=== PATIENT | female | born 1960 | race Caucasian/White ===

== ENCOUNTER 2016-10-05 19:49 | Emergency (ER) | payer OTHER ==
[2016-10-05 20:53] VITALS: BP 129/82
--- NOTE | 2016-10-05 22:04 | UC ---
UC General HPI - HPI Summary HPI Summary: complaint of left great toe pain that started yesterday swollen and red denies trauma denies any wounds or bites on her foot sister has gout hasn't taken any medication for pain - History of Current Complaint Chief Complaint: UCLowerExtremity Stated Complaint: SORE BIG TOE Time Seen by Provider: 10/05/16 21:58 Hx Obtained From: Patient - Allergy/Home Medications Allergies/Adverse Reactions: Allergies Allergy/AdvReac Type Severity Reaction Status Date / Time Meperidine [From Demerol HCl] Allergy Unknown Verified 10/05/16 20:54 Reaction Details Home Medications: Home Medications Calcium Carbonate-Vitamin D [Calcium + D3 600-200 mg-Unit] 10/05/16 [History Confirmed 10/05/16] LoraTADine TAB(NF) [Claritin 10 MG TAB(NF)] 10/05/16 [History] Multiple Vitamin [Multi Vitamin] 10/05/16 [History] Progesterone CAP (NF) [Prometrium (NF)] 10/05/16 [History] PMH/Surg Hx/FS Hx/Imm Hx - Surgical History Surgical History: None - Social History Alcohol Use: None Substance Use Type: None Smoking Status (MU): Never Smoked Tobacco Review of Systems Constitutional: Negative Skin: Negative Eyes: Negative ENT: Negative Respiratory: Negative Cardiovascular: Negative Gastrointestinal: Negative Genitourinary: Negative Motor: Negative Neurovascular: Negative Musculoskeletal: Other: - left great toe pain Neurological: Negative Psychological: Negative All Other Systems Reviewed And Are Negative: Yes Physical Exam Triage Information Reviewed: Yes Appearance: No Pain Distress, Well-Nourished Vital Signs: Initial Vital Signs Temp 97.1 F 10/05/16 20:50 Pulse 80 10/05/16 20:50 Resp 18 10/05/16 20:50 BP 129/82 10/05/16 20:50 Pulse Ox 100 10/05/16 20:50 Vital Signs Reviewed: Yes Eyes: Positive: Conjunctiva Clear ENT: Positive: Pharynx normal, TMs normal Neck: Positive: Supple Respiratory: Positive: Lungs clear, Normal breath sounds, No respiratory distress Cardiovascular: Positive: RRR, No Murmur, Pulses Normal Abdomen Description: Positive: Nontender, Soft Bowel Sounds: Positive: Present Musculoskeletal: Positive: Other: - left great toe pain Neurological Exam: Normal Psychological Exam: Normal Skin Exam: Normal Course/Dx - Differential Dx - Multi-Symptom Differential Diagnoses: Other - gout, cellulitis, fracture Provider Diagnoses: gout Discharge - Discharge Plan Condition: Stable Disposition: HOME Prescriptions: Colchicine* [Colcrys*] 0.6 mg PO DAILY #3 tab Patient Education Materials: Gout (ED), Low Purine Diet (ED) Referrals: Gerson Osuna MD [Primary Care Provider] - Additional Instructions: Increase fluids and rest Take ibuprofen 800 mg PO once tonight for pain then take colcichine as directed Please review your discharge instructions. If your symptoms do not improve please call your primary care provider or return to urgent care.
== END 2016-10-05 22:17 | disposition home or self-care (01) ==
LOC: UCEAST 19:49
DX: M10.072 Idiopathic gout, left ankle and foot (principal); Z88.5 Allergy status to narcotic agent
CPT/HCPCS: 99212; G0463

== ENCOUNTER 2018-06-18 12:45 | Emergency (ER) | payer OTHER ==
--- NOTE | 2018-06-18 13:23 | ED ---
GI/ HPI - HPI Summary HPI Summary: This patient is a 57 year old F [facility] bleeding that began 4 days ago that was worse in the last two days. The patient rates the pain 0/10 in severity. She states she has been changing her tampon every 90 minutes. She claims this has improved as over the weekend she was soaking through two ultra-tampons every 30 minutes to an hour. Patient reports lower back pain and ABD cramping over the weekend that resolved. The patient has experienced this issue in the past and dx with uterine fibroids. She states she started taking progesterone 100mg QD 9 months ago and had a large improvement on the bleeding. She has recently received a transvaginal US. She contacted Dr. Alvares this AM and it was recommended she come in to be seen. She is not on a blood thinner or HTN medications. - History of Current Complaint Chief Complaint: EDVaginalBleeding Time Seen by Provider: 06/18/18 13:08 Stated Complaint: HEAVY MENSTRUAL BLEEDING Hx Obtained From: Patient Hx Last Menstrual Period: end of August 2016 Onset/Duration: Started Days Ago, Still Present Timing: Constant Severity: Mild Current Severity: None Pain Intensity: 0 Associated Signs and Symptoms: Positive: Other: - lower back pain and ABD cramping - Allergy/Home Medications Allergies/Adverse Reactions: Allergies Allergy/AdvReac Type Severity Reaction Status Date / Time latex Allergy Shortness Verified 06/18/18 12:51 of Breath meperidine Allergy Vomiting Verified 06/18/18 12:51 Home Medications: Home Medications Ferrous Sulfate TAB* 325 mg PO DAILY 06/18/18 [History Confirmed 06/18/18] Magnesium Oxide [Magnesium] 400 mg PO DAILY 06/18/18 [History Confirmed 06/18/18 ] Norethindrone Acetate 5 mg PO DAILY 06/18/18 [History Confirmed 06/18/18] PMH/Surg Hx/FS Hx/Imm Hx Endocrine/Hematology History: Denies: Hx Blood Transfusions, Hx Bone Marrow Disease, Hx Systemic Lupus Erythematosus Respiratory History: Denies: Hx Chronic Obstructive Pulmonary Disease (COPD) History: Reports: Other Problems/Disorders - uterine fibroids EENT History: Denies: Hx Deafness Neurological History: Denies: Hx CVA Infectious Disease History: No Infectious Disease History: Denies: Traveled Outside the [place] in Last 30 Days - Family History Known Family History: Negative: Respiratory Disease, Seizure Disorder - Social History Alcohol Use: None Substance Use Type: Reports: None Smoking Status (MU): Former Smoker Review of Systems Negative: Fever Positive: Abdominal Pain - cramping Genitourinary: Other - vaginal bleeding Positive: Other - back pain All Other Systems Reviewed And Are Negative: Yes Physical Exam - Summary Physical Exam Summary: General: well-appearing, no pain distress Skin: warm, color reflects adequate perfusion, dry Head: normal Eyes: EOMI, VICTORIA ENT: normal Neck: supple, nontender Respiratory: CTA, breath sounds present Cardiovascular: RRR Abdomen: soft, nontender Bowel: present Musculoskeletal: normal, strength/ROM intact Neurological: sensory/motor intact, A&O x3 Psychological: affect/mood appropriate Triage Information Reviewed: Yes Vital Signs On Initial Exam: Initial Vitals Temp Pulse Resp BP Pulse Ox 97.8 F 82 20 142/70 100 06/18/18 12:48 06/18/18 12:48 06/18/18 12:48 06/18/18 12:48 06/18/18 12:48 Vital Signs Reviewed: Yes Diagnostics - Vital Signs Vital Signs Temp Pulse Resp BP Pulse Ox 06/18/18 13:01 76 100 06/18/18 13:00 76 143/75 99 06/18/18 12:59 73 99 06/18/18 12:48 97.8 F 82 20 142/70 100 - Laboratory Result Diagrams: 06/18/18 13:58 06/18/18 13:58 Lab Statement: Any lab studies that have been ordered have been reviewed, and results considered in the medical decision making process. GIGU Course/Dx - Course Course Of Treatment: I discussed the case with the CHRISTIAN SCIENCE PRACTITIONER on-call Dr. Flores. Patient's hemoglobin is slightly low but not at a dangerous level at this time. Overall her bleeding is decreasing. Her orthostatic vital signs are normal. The plan is to increase her norethindrone to 10 mg a day and have her follow-up with her CHRISTIAN SCIENCE PRACTITIONER in the next 2-3 days. She'll return the emergency Department if her conditions worsens or she has any other questions or concerns. - Diagnoses Provider Diagnoses: Menorrhagia with irregular cycle, Uterine fibroid Discharge - Sign-Out/Discharge Documenting (check all that apply): Patient Departure - Discharge Plan Condition: Stable Disposition: HOME Prescriptions: Norethindrone Acetate [Aygestin] 10 mg PO DAILY #20 tablet Patient Education Materials: Menorrhagia (ED), Uterine Artery Embolization for Fibroids (DC) Referrals: Gerson Osuna MD [Primary Care Provider] - Fatuma Alvares MD [Medical Doctor] - Wallace Faith MD [Medical Doctor] - Additional Instructions: FOLLOW UP WITH YOUR OBGYN SCHEDULED. DR FAITH PERFORMS UTERINE ARTERY EMBOLIZATION WHICH MAY BE HELPFUL FOR YOUR CONDITION. GET RECHECKED FOR ANY WORSENING OF YOUR CONDITION; EXCESSIVE BLEEDING, YOU FEEL LIKE PASSING OUT OR QUESTIONS OR CONCERNS. - Billing Disposition and Condition Condition: STABLE Disposition: Home - Attestation Statements Document Initiated by Brittanyibe: Yes Documenting Scribe: Aram Kelley Provider For Whom Sidney is Documenting (Include Credential): Mo Stark MD Scribe Attestation: Aram Patel , scribed for Mo Stark MD on 06/18/18 at 1523. Scribe Documentation Reviewed: Yes Provider Attestation: The documentation as recorded by the Aram peterson accurately reflects the service I personally performed and the decisions made by Mo lopez MD Status of Scribe Document: Viewed
--- OUTSIDE RECORDS SUMMARY | 2018-06-18 13:23 | XMS REPORT | Continuity of Care Document ---
:1960 External Reference #:[id number] Author Name Adeola Paredes O.D. Address [address] [facility] [place] [address] Care Team Providers Name Role Phone Gerson Osuna M.D. Primary Care Physician Unavailable Payers Type Date Identification Numbers Payment Provider Subscriber Policy Number: [id number] [employer] Ppo/Pos/Epo/Nap Tamra Mary Group Number: [id number] [address] PayID: [id number] [place] [address] Advance Directives Description No Information Available Problems Date Description Provider Status Onset: 05/26/2015 Nuclear senile cataract Leisa Miller O.D. Active Onset: 05/26/2015 Excess skin of eyelid Leisa Miller O.D. Active Onset: 05/26/2015 Myopia Leisa Miller O.D. Active Onset: 05/26/2015 Regular astigmatism Leisa Miller O.D. Active Onset: 05/26/2015 Presbyopia Leisa Miller O.D. 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 Family History Date Family Member(s) Problem(s) Comments Father No Current Problems Mother Cataract Social History Type Date Description Comments Sex Unknown Marital Status Legal Status: Occupation [employer] Work Status Full-Time Employment ETOH Use Rarely consumes alcohol Tobacco Use Start: Unknown End: Patient is a former smoker Unknown Recreational Drug Use Denies Drug Use Smoking Status Reviewed: 05/25/18 Patient is a former smoker Allergies, Adverse Reactions, Alerts Date Description Reaction Status Severity Comments 05/26/2015 Demerol Active 05/26/2015 Latex Active Medications Medication Date Status Form Strength Qnty SIG Indications Ordering Provider Multivitamin Active Liquid Unknown 000 Vitamin D Active Tablets 400Unit Unknown 000 Ibuprofen Active Capsules 200mg as Unknown 000 needed Loratadine-Pseu Active Tablets ER 10-240mg Unknown doephedrine ER 000 24HR Progesterone Active Capsules 100mg 1 Tab PO Unknown Micronized 000 Daily Magnesium Active Capsules 300mg as Unknown 000 needed Iron Hx Tablets 90(18Fe) Unknown 000 - mg 018 Immunizations Description No Information Available Vital Signs Description No Information Available Results Description No Information Available Procedures Date Code Description Status 05/25/2018 30803 Determination Of Refractive State Completed 05/25/2018 24940 Est Patient Comprehensive Exam Completed 05/23/2017 54176 Fundus Photography With Interpretation And Report Completed 05/23/2017 94578 Determination Of Refractive State Completed 05/23/2017 69494 Est Patient Comprehensive Exam Completed 05/26/2015 35224 Determination Of Refractive State Completed 05/26/2015 09224 New Patient Comprehensive Exam Completed Encounters Description No Information Available Plan of Treatment 05/25/2018 - Adeola Paredes O.D.D31.32 Benign neoplasm of left choroidComments: Smoking can increase the risk of developing or worsening any eye related disease , as well as affect your overall health. If you are a smoker, we strongly recommend that you quit.If you are not a smoker, we strongly recommend that you do not start. You have a nevus in your left eye. This is similar to a mole on your skin. Typically this will not change, but I will monitor it.Follow up:1 Year Follow Up You can expect to have your eyes dilated at your next visit. If Dr. Paredes orders any additional testing, it may require extra time. We recommend that you bring sunglasses, as dilation drops often make you light sensitive until they wear off. We always recommend you bring someone to drive you home if you are uncomfortable driving with your eyes dilated. If you have any questions before your next visit, feel free to call our office at .Y42.13 Myopia, bilateralComments:You have Myopia, or near sightedness. I have given you a prescription for glasses.H52.223 Regular astigmatism, bilateralComments:Astigmatism is a common vision condition that happens when a person's cornea is not symmetrical. Dr. Paredes has given you a prescription to correct for this.H52.4 PresbyopiaComments:You have presbyopia. This is when the lens in your eye loses the ability to change focus, and happens as we age. A pair of reading glasses will help you see up close.
--- OUTSIDE RECORDS SUMMARY | 2018-06-18 13:23 | XMS REPORT | Continuity of Care Document ---
:1960 External Reference #:[id number] Author Name Adeola Paredes O.D. Address [address] [facility] [place] [address] Care Team Providers Name Role Phone Gerson Osuna M.D. Primary Care Physician Unavailable Payers Type Date Identification Numbers Payment Provider Subscriber Policy Number: [id number] [employer] Ppo/Pos/Epo/Nap Tamra Mary Group Number: [id number] [address] PayID: [id number] [place] [address] Advance Directives Description No Information Available Problems [...] Legal Status: Occupation Area [employer] Work Status Full-Time Employment ETOH Use Rarely [...] Information Available Procedures Date Code Description Status 05/23/2017 50967 Fundus Photography With Interpretation And Report Completed 05/23/2017 83612 Determination Of Refractive State Completed 05/23/2017 48756 Est Patient Comprehensive Exam Completed 05/26/2015 95378 Determination Of Refractive State Completed 05/26/2015 06549 New Patient Comprehensive Exam Completed Encounters Description No Information Available Plan of Treatment Future Appointment(s):06/08/2018 9:30 am - Adeola Paredes O.D. at Gerson Mendoza MD, pc107/25/2017 - Adeola Paredes O.D.D31.32 Benign neoplasm of left choroidComments:Smoking can increase the risk of developing or worsening any eye related disease, as well as affect your overall health. If you are a smoker , we strongly recommend that you quit.If you [...] feel free to call our office at .H52.13 Myopia, bilateralComments:You have Myopia, or near sightedness. I have given you a prescription for glasses.H52.223 Regular astigmatism, bilateralComments:Astigmatism is a common vision condition that happens when a person's cornea is not symmetrical. Dr. Paredes has given you a prescription to correct for this.H52.4 PresbyopiaComments:You have presbyopia. This is when the lens in your eye loses the ability to change focus , and happens as we age. A pair of reading glasses will help you see up close.
[2018-06-18] MEDS ORDERED: NS 0.9% 1000 ML* 1,000 ML IV ONE (13:38)
[2018-06-18 14:11] LABS: ABS Basophils 0 10^3/ul (0-0.2); ABS Eosinophils 0.1 10^3/ul (0-0.6); ABS Lymphocytes 1.1 10^3/ul (1.0-4.8); ABS Monocytes 0.6 10^3/ul (0-0.8); ABS Neutrophils 5.3 10^3/ul (1.5-7.7); ABS Nucleated RBC 0 10^3/ul; Eosinophil % 1.3 %; Hematocrit 30 % (35-47); Hemoglobin 10.1 g/dl (12.0-16.0); Mean Corpuscular HGB Conc 34 g/dl (31-36); Mean Corpuscular Hemoglobin 29 pg (27-31); Mean Corpuscular Volume 86 fL (80-97); Nucleated Red Blood Cells % 0; Platelet Count 296 10^3/ul (150-450); Red Blood Count 3.48 10^6/ul (4.00-5.40); Red Cell Distribution Width 14 % (10.5-15); White Blood Count 7.2 10^3/ul (3.5-10.8)
[2018-06-18 14:19] LABS: Activated Partial Thrombo Time 26.4 seconds (26.0-36.3); INR 0.95 (0.77-1.02)
[2018-06-18 14:36] LABS: ALT 8 U/L (7-52); AST 12 U/L (13-39); Albumin 3.9 g/dL (3.2-5.2); Albumin/Globulin Ratio 1.5 (1-3); Alkaline Phosphatase 65 U/L (34-104); Anion Gap 8 mmol/L (2-11); BUN/Creatinine Ratio 14.7 (8-20); Blood Urea Nitrogen 14 mg/dL (6-24); CO2 Carbon Dioxide 23 mmol/L (22-32); Calcium 8.9 mg/dL (8.6-10.3); Chloride 107 mmol/L (101-111); EGFR Non-African American 60.4 (>60); Globulin 2.6 g/dL (2-4); Glucose 100 mg/dL (70-100); Potassium 3.7 mmol/L (3.5-5.0); Sodium 138 mmol/L (135-145); Total Protein 6.5 g/dL (6.4-8.9)
[2018-06-18 14:42] LABS: HCG Pregnancy < 0.60 mIU/mL
[2018-06-18 16:03] VITALS: BP 118/63
== END 2018-06-18 16:04 | disposition home or self-care (01) ==
LOC: ED 12:45
DX: N92.1 Excessive and frequent menstruation with irregular cycle (principal); D25.9 Leiomyoma of uterus, unspecified; Z88.5 Allergy status to narcotic agent; Z91.040 Latex allergy status; Z87.891 Personal history of nicotine dependence
CPT/HCPCS: 36415; 80053; 84702; 85025; 85610; 85730; 96360; 99283